=== PATIENT | female | born 1970 | race Caucasian/White ===

== ENCOUNTER 2017-10-05 20:54 | Emergency (ER) | payer OTHER ==
[~2017-10-05] VITALS: Ht 160 cm; Wt 97.1 kg
[2017-10-05 21:16] VITALS: BP 102/69
--- NOTE | 2017-10-05 22:48 | NUR ---
Patient to bed 12.
--- NOTE | 2017-10-05 23:13 | NUR ---
46Y/F PT. PRESENTS TO ED WITH C/O LOW BACK PAIN; SPASMS; NO TRAUMA OR FALL STATED; PT DENIES ANY N/V/D,SOB,CP AT THE MOMENT. NO MEDICAL HX. AAO X4, AMBULATORY WITH W/C ASSIST. RESPIRATIONS ROOM AIR, EVEN AND UNLABORED. C/O PAIN 09/01. VSS, ER MADE AWARE OF PT. STATUS.
--- NOTE | 2017-10-06 00:10 | NUR ---
Patient being evaluated by DR. TRAN at bedside.
[2017-10-06] MEDS ORDERED: HYDROcodone/APAP 10/325 MG 1 TAB TAB PO STA (00:39)
[2017-10-06] MEDS ORDERED: CYCLOBENZAPRINE 10 MG TAB PO ONE (00:40)
[2017-10-06] MEDS ORDERED: KETOROLAC 60 MG/2 ML VIAL IM ONE (00:40)
[2017-10-06 01:29] VITALS: BP 125/56
--- NOTE | 2017-10-06 01:30 | NUR ---
Patient discharged with v/s stable. Written and verbal after care instructions given and explained. Patient alert, oriented and verbalized understanding of instructions. Wheel Chair Assisted with to car. All questions addressed prior to discharge. ID band removed. Patient advised to follow up with PMD. Rx of NORCO 5/325 MG, MOTRIN 600 MG, FLEXERIL 10 MG given. Patient educated on indication of medication including possible reaction and side effects. Opportunity to ask questions provided and answered.
== END 2017-10-06 01:30 | disposition home or self-care (01) ==
LOC: MED 20:54
DX: S39.012A Strain of muscle, fascia and tendon of lower back, initial encounter (principal); M54.40 Lumbago with sciatica, unspecified side; X58.XXXA Exposure to other specified factors, initial encounter; Y93.89 Activity, other specified; Y92.89 Other specified places as the place of occurrence of the external cause; Y99.8 Other external cause status
CPT/HCPCS: 81025; 96372; 99283; J1885; J7030

== ENCOUNTER 2024-05-25 21:07 | Emergency (ER) | payer MEDICAID, OTHER ==
[~2024-05-25] VITALS: Ht 162.6 cm; Wt 85.7 kg
[2024-05-25 21:12] VITALS: BP 114/73; PULSE 83; RESP 16; TEMP 96.9; O2SAT 99
[2024-05-26] MEDS: KETOROLAC 30 MG/ML VIAL IM ONE (00:46)
[2024-05-26] MEDS: ACETAMINOPHEN EXTRA STRENGTH 500 MG TAB PO ONE (00:46)
[2024-05-26 00:59] LABS: BASOPHILS % (AUTO) 0.2 % (0.0-2.0); EOSINOPHILS % (AUTO) 0.5 % (0.0-4.0); HEMATOCRIT 42.5 % (36-48); HEMOGLOBIN 14.4 g/dL (12.0-16.0); LYMPHOCYTES # (AUTO) 1.1 K/uL (2.5-16.5); LYMPHOCYTES % (AUTO) 24.5 % (20.5-51.1); MEAN CORPUSCULAR HEMOGLOBIN 32 pg (27-31); MEAN CORPUSCULAR HGB CONC 34 g/dL (33-37); MEAN CORPUSCULAR VOLUME 93.1 fL (80-94); MONOCYTES # (AUTO) 0.3 K/uL (0.8-1.0); MONOCYTES % (AUTO) 6.4 % (1.7-9.3); NEUTROPHILS % (AUTO) 68.4 % (42.2-75.2); PLATELET COUNT (AUTO) 211 K/uL (140-450); RED BLOOD CELL COUNT(AUTO) 4.57 MIL/uL (4.20-5.40); RED CELL DISTRIBUTION WIDTH 13.1 % (11.6-13.7); WHITE BLOOD COUNT (AUTO) 4.3 K/uL (4.8-10.8)
[2024-05-26 01:04] LABS: CALCIUM 8.4 mg/dL (8.5-10.1); CARBON DIOXIDE 23.8 mmol/L (21-32); POTASSIUM 3.8 mmol/L (3.5-5.1)
[2024-05-26 01:11] LABS: ALBUMIN 3.8 g/dL (3.4-5.0); BILIRUBIN,DIRECT 0.1 mg/dL (0.0-0.3); TOTAL BILIRUBIN 0.5 mg/dL (0.0-1.0); TOTAL PROTEIN, SERUM 7.9 g/dL (6.4-8.2)
[2024-05-26 01:20] VITALS: O2SAT 98
[2024-05-26 01:27] VITALS: O2SAT 98
[2024-05-26 01:34] LABS: FLU A ANTIGEN negative (NEGATIVE); FLU B ANTIGEN NEGATIVE (NEGATIVE)
[2024-05-26] MEDS ORDERED: DICYCLOMINE HCL LIQUID 10 MG/5 ML UDC ONE (01:37)
[2024-05-26] MEDS ORDERED: ALUMINUM HYD/MAG/SIMETHICONE 30 ML UDC ONE (01:37)
[2024-05-26] MEDS ORDERED: ONDA-188 PO (01:50)
[2024-05-26] MEDS: DICYCLOMINE HCL LIQUID 20 MG, ALUMINUM HYD/MAG/SIMETHICONE 30 ML, LIDOCAINE VISCOUS 2% ... PO ONE (01:58)
== END 2024-05-26 02:20 | disposition home or self-care (01) ==
LOC: MED 21:07
DX: B34.9 Viral infection, unspecified (principal); Z79.1 Long term (current) use of non-steroidal anti-inflammatories (NSAID); Z20.822 Contact with and (suspected) exposure to COVID-19
CPT/HCPCS: 36415; 80048; 80076; 83690; 85025; 87426; 87804; 96372; 99284; J1885; 99283